=== PATIENT | male | born 1960 | race Two or more races ===

== ENCOUNTER 2022-12-02 08:59 | Emergency (ER) | payer OTHER ==
[~2022-12-02] VITALS: Ht 172.7 cm; Wt 88.2 kg
[2022-12-02] MEDS ORDERED: IBUPROFEN 600 MG TAB PO ONE (10:15)
[2022-12-02 10:47] LABS: COVID19 ANTIGEN SOFIA FIA NEGATIVE (NEGATIVE)
[2022-12-02 11:10] VITALS: BP 123/78; PULSE 87; RESP 18; O2SAT 98
[2022-12-02 11:13] VITALS: TEMP 98.3
== END 2022-12-02 11:21 | disposition home or self-care (01) ==
LOC: ER 08:59
DX: J02.9 Acute pharyngitis, unspecified (principal); Z20.822 Contact with and (suspected) exposure to COVID-19
CPT/HCPCS: 36415; 87426